=== PATIENT | male | born 1945 | race Caucasian/White ===

== ENCOUNTER 2019-01-21 15:22 | Emergency (ER) | payer OTHER ==
[2019-01-21] MEDS ORDERED: Sodium Chloride 0.9% 10 ML Syringe FLUSH PRN (16:09)
[2019-01-21] MEDS ORDERED: Ondansetron 4 MG/2 ML SDV IVPUSH ONE (16:10)
[2019-01-21] MEDS ORDERED: Sodium Chloride 0.9% 1,000 ML IV SCH (16:15)
--- NOTE | 2019-01-21 16:16 | EDM.PDOC ---
ED HPI GENERAL MEDICAL PROBLEM - General Chief Complaint: Abdominal Pain Stated Complaint: ABDOMINAL PAIN Time Seen by Provider: 01/21/19 15:23 Source of Information: Reports: Patient History Limitations: Reports: No Limitations - History of Present Illness INITIAL COMMENTS - FREE TEXT/NARRATIVE: Yury is a 73 year old male presents to the ED today with c/o 3 month hx of abdominal pain, intermittent in nature, associated nausea, light colored stools that "float". Patient is jaundiced with sclera icterus, he doesn't think this is new. Patient reports yesterday his stool was "normal". Patient does dry heave at times. Patient did drink heavily for "years" has not for many years. I asked patient if he has ever been told he has cirrhosis or liver disease, he "states that may sound familiar". Patient does endorse feeling hot and cold at times. Patient takes up to 800 mg of Ibuprofen for his abdominal pain daily which he states helps. Does not take Tylenol. Stopped his Ranitidine 10 days ago, "it wasn't doing anything". [facility]. Onset: Gradual Duration: Waxing/Waning, Other (3 months) - Related Data Allergies Allergy/AdvReac Type Severity Reaction Status Date / Time Unable to Assess Allergy Unverified 01/21/19 15:48 Home Meds: Home Meds Albuterol [Proventil Neb Soln] 2 puff INH QID PRN 01/21/19 [History] Ibuprofen 800 mg PO DAILY 01/21/19 [History] Past Medical History Respiratory History: Reports: COPD Psychiatric History: Reports: Addiction - Infectious Disease History Infectious Disease History: Reports: Chicken Pox, Measles, Mumps - Past Surgical History Respiratory Surgical History: Reports: None Musculoskeletal Surgical History: Reports: Hip Replacement Social & Family History - Tobacco Use Smoking Status *Q: Former Smoker Years of Tobacco use: 55 Packs/Tins Daily: 3 Used Tobacco, but Quit: Yes Month/Year Tobacco Last Used: 01/2011 Second Hand Smoke Exposure: Yes - Caffeine Use Caffeine Use: Reports: Coffee - Recreational Drug Use Recreational Drug Use: No ED ROS GENERAL - Review of Systems Review Of Systems: ROS reveals no pertinent complaints other than HPI. ED EXAM, GI/ABD - Physical Exam Exam: See Below Exam Limited By: No Limitations General Appearance: Alert, WD/WN, No Apparent Distress Eyes: Bilateral: EOMI Ears: Normal External Exam Nose: Normal Inspection Throat/Mouth: Normal Inspection, Normal Oropharynx Head: Atraumatic, Normocephalic Neck: Supple Respiratory/Chest: No Respiratory Distress, Lungs Clear, Normal Breath Sounds Cardiovascular: Normal Peripheral Pulses, Regular Rate, Rhythm, No Murmur GI/Abdominal Exam: Normal Bowel Sounds, Soft, Non-Tender, Distended, Hepatomegaly Back Exam: Normal Inspection Extremities: Normal Inspection Neurological: Alert, Oriented, CN II-XII Intact Psychiatric: Normal Affect, Normal Mood Skin Exam: Jaundice Lymphatic: No Adenopathy Comments: Bilateral scleral icterus Course - Vital Signs Last Recorded V/S: Last Vital Signs Temp 36.3 C 01/21/19 16:00 Pulse 88 01/21/19 16:37 Resp 18 01/21/19 16:37 BP 129/54 L 01/21/19 16:37 Pulse Ox 97 01/21/19 16:37 Yury is a 73 year old male, presents to the ED today with c/o a 3 month hx of intermittent abdominal pain, bloating and abnormal stools with significantly increased flatulence. Please refer to HPI and focused exam. Patient arrives here hemodynamically stable, afebrile, abdomen is bloated on exam but soft and non tender. Patient is jaundice with scleral icterus. Likely with his ETOH use hx he has cirrhosis but cannot remember if he has ever been diagnosed. Patient denies any diabetic hx, does report COPD, overall poor historian, lives alone. Doctors at the [facility] in [place]. We attempted to get records but they are closed for the day. I am concerned with regard to progressive liver disease/failure. Given duration of symptoms, it is unlikely this is obstructive or infectious in nature. UA obtained as well as blood work, patient started on IV normal saline and given Zofran for nausea. UA returns with large bilirubin and 500 Glucose, no infection. CBC returns with low white count of 2.2, elevated HGB of 15.9, Neutrophils 91%, platelets are normal. PTT low, INR normal at 0.99. Lipase is normal. CMP returns with Gap of 14.6, Lactic Acid of 3.5, Bilirubin of 9.2, AST of 131, ALT of 256, Alk Phos of 397 and CRP of 14.37. Creatinine and GFR WNL. Given elevated lactic acid in light of bilirubin and high neutrophil count I did obtain a set of blood cultures and did start patient on Zosyn for sepsis prophylaxis although I do feel that this lactic acid is the result of his bilirubin. CT of abdomen and pelvis obtained. CT scan concerning for soft tissue mass in common bile duct near duodenum. NO gallbladder wall thickening, stones, CBD wall thickened. Concern for malignancy. I discussed his case with Dr. Bee, hospitalist at [facility] as patient is a [facility] patient, he felt patient required more extensive specialty than what they can provide and recommended . I spoke with Dr. Rankin, ED physician at who has graciously accepted patient for admission. Patient update on plan of care and exam/test findings and is agreeable to transfer however is insistent on driving himself. Given his stable vitals signs and the fact that this is not an acute presentation, I feel this is reasonable. Patient discharged in stable condition. - Orders/Labs/Meds Orders: Active Orders 24 hr Category Date Time Status Peripheral IV Care [RC] . DIRECTED Care 01/21/19 16:09 Active CULTURE BLOOD [BC] Urgent Lab 01/21/19 17:30 Received CULTURE BLOOD [BC] Urgent Lab 01/21/19 17:38 Received Iopamidol [Isovue-300 (61%)] Med 01/21/19 17:30 Active 100 ml IV . DIRECTED Piperacillin/Tazobactam [Zosyn] 3.375 gm Med 01/21/19 17:30 Active Sodium Chloride 0.9% [Normal Saline] 50 ml IV Q6H Sodium Chloride 0.9% [Normal Saline] 1,000 ml Med 01/21/19 16:15 Active IV ASDIRECTED Sodium Chloride 0.9% [Normal Saline] 100 ml Med 01/21/19 17:30 Active IV ASDIRECTED Sodium Chloride 0.9% [Saline Flush] Med 01/21/19 16:09 Active 10 ml FLUSH ASDIRECTED PRN Blood Culture x2 Reflex Set [OM.PC] Urgent Oth 01/21/19 17:25 Ordered Peripheral IV Insertion Adult [OM.PC] Routine Oth 01/21/19 16:09 Ordered Medication Orders Sodium Chloride (Normal Saline) 1,000 mls @ 125 mls/hr IV ASDIRECTED RIGOBERTO Last Admin: 01/21/19 16:27 Dose: 125 mls/hr Sodium Chloride (Normal Saline) 100 mls @ 3 mls/sec IV ASDIRECTED RIGOBERTO Last Admin: 01/21/19 17:45 Dose: 3 mls/sec Piperacillin Sod/Tazobactam (Sod 3.375 gm/ Sodium Chloride) 50 mls @ 100 mls/ hr IV Q6H RIGOBERTO Iopamidol (Isovue-300 (61%)) 100 ml IV . DIRECTED RIGOBERTO Last Admin: 01/21/19 17:45 Dose: 100 ml Sodium Chloride (Saline Flush) 10 ml FLUSH ASDIRECTED PRN PRN Reason: Keep Vein Open Last Admin: 01/21/19 16:34 Dose: 10 ml Labs: Laboratory Tests 01/21/19 01/21/19 01/21/19 Range/Units 15:47 16:30 16:30 WBC 2.2 L (4.5-11.0) K/uL RBC 5.35 (4.30-5.90) M/uL Hgb 15.9 H (12.0-15.0) g/dL Hct 47.4 (40.0-54.0) % MCV 89 (80-98) fL MCH 30 (27-31) pg MCHC 34 (32-36) % Plt Count 197 (150-400) K/uL Neut % (Auto) 91 H (36-66) % Lymph % (Auto) 9 L (24-44) % [place] % (Auto) 1 L (2-6) % Eos % (Auto) 0 L (2-4) % Baso % (Auto) 0 (0-1) % PT (9.5-12.0) sec INR (0.80-1.20) APTT (27.0-36.0) sec Sodium 139 L (140-148) mmol/L Potassium 3.6 (3.6-5.2) mmol/L Chloride 101 (100-108) mmol/L Carbon Dioxide 27 (21-32) mmol/L Anion Gap 14.6 H (5.0-14.0) mmol/L BUN 25 H (7-18) mg/dL Creatinine 1.0 (0.8-1.3) mg/dL Est Cr Clr Drug Dosing 65.55 mL/min Estimated GFR (MDRD) > 60 (>60) Glucose 117 H (74-106) mg/dL Lactic Acid (0.4-2.0) mmol/L Calcium 9.6 (8.5-10.1) mg/dL Total Bilirubin 9.2 H (0.2-1.0) mg/dL AST 131 H (15-37) U/L ALT 256 H (12-78) U/L Alkaline Phosphatase 397 H (46-116) U/L Ammonia (11-32) mmol/L C-Reactive Protein 14.37 H (0.0-0.3) mg/dL Total Protein 8.0 (6.4-8.2) g/dL Albumin 3.4 (3.4-5.0) g/dL Globulin 4.6 H (2.3-3.5) g/dL Albumin/Globulin Ratio 0.7 L (1.2-2.2) Lipase (73-393) U/L Urine Color [place] A (YELLOW) Urine Appearance Slightly cloudy A (CLEAR) Urine pH 5.5 (5.0-8.0) Ur Specific [place] >= 1.030 (1.008-1.030) Urine Protein 30 H (NEGATIVE) mg/dL Urine Glucose (UA) 500 H (NEGATIVE) mg/dL Urine Ketones Negative (NEGATIVE) mg/dL Urine Occult Blood Negative (NEGATIVE) Urine Nitrite Negative (NEGATIVE) Urine Bilirubin Large H (NEGATIVE) Urine Urobilinogen 1.0 (0.2-1.0) EU/dL Ur Leukocyte Esterase Negative (NEGATIVE) Urine RBC Not seen (0-5) Urine WBC Not seen (0-5) Ur Epithelial Cells Not seen Amorphous Sediment Not seen Urine Bacteria Not seen Urine Mucus Moderate 01/21/19 01/21/19 01/21/19 Range/Units 16:30 16:30 16:30 WBC (4.5-11.0) K/uL RBC (4.30-5.90) M/uL Hgb (12.0-15.0) g/dL Hct (40.0-54.0) % MCV (80-98) fL MCH (27-31) pg MCHC (32-36) % Plt Count (150-400) K/uL Neut % (Auto) (36-66) % Lymph % (Auto) (24-44) % [place] % (Auto) (2-6) % Eos % (Auto) (2-4) % Baso % (Auto) (0-1) % PT 10.7 (9.5-12.0) sec INR 0.99 (0.80-1.20) APTT 24.0 L (27.0-36.0) sec Sodium (140-148) mmol/L Potassium (3.6-5.2) mmol/L Chloride (100-108) mmol/L Carbon Dioxide (21-32) mmol/L Anion Gap (5.0-14.0) mmol/L BUN (7-18) mg/dL Creatinine (0.8-1.3) mg/dL Est Cr Clr Drug Dosing mL/min Estimated GFR (MDRD) (>60) Glucose (74-106) mg/dL Lactic Acid (0.4-2.0) mmol/L Calcium (8.5-10.1) mg/dL Total Bilirubin (0.2-1.0) mg/dL AST (15-37) U/L ALT (12-78) U/L Alkaline Phosphatase (46-116) U/L Ammonia < 10 L (11-32) mmol/L C-Reactive Protein (0.0-0.3) mg/dL Total Protein (6.4-8.2) g/dL Albumin (3.4-5.0) g/dL Globulin (2.3-3.5) g/dL Albumin/Globulin Ratio (1.2-2.2) Lipase 122 (73-393) U/L Urine Color (YELLOW) Urine Appearance (CLEAR) Urine pH (5.0-8.0) Ur Specific [place] (1.008-1.030) Urine Protein (NEGATIVE) mg/dL Urine Glucose (UA) (NEGATIVE) mg/dL Urine Ketones (NEGATIVE) mg/dL Urine Occult Blood (NEGATIVE) Urine Nitrite (NEGATIVE) Urine Bilirubin (NEGATIVE) Urine Urobilinogen (0.2-1.0) EU/dL Ur Leukocyte Esterase (NEGATIVE) Urine RBC (0-5) Urine WBC (0-5) Ur Epithelial Cells Amorphous Sediment Urine Bacteria Urine Mucus 01/21/19 Range/Units 16:30 WBC (4.5-11.0) K/uL RBC (4.30-5.90) M/uL Hgb (12.0-15.0) g/dL Hct (40.0-54.0) % MCV (80-98) fL MCH (27-31) pg MCHC (32-36) % Plt Count (150-400) K/uL Neut % (Auto) (36-66) % Lymph % (Auto) (24-44) % [place] % (Auto) (2-6) % Eos % (Auto) (2-4) % Baso % (Auto) (0-1) % PT (9.5-12.0) sec INR (0.80-1.20) APTT (27.0-36.0) sec Sodium (140-148) mmol/L Potassium (3.6-5.2) mmol/L Chloride (100-108) mmol/L Carbon Dioxide (21-32) mmol/L Anion Gap (5.0-14.0) mmol/L BUN (7-18) mg/dL Creatinine (0.8-1.3) mg/dL Est Cr Clr Drug Dosing mL/min Estimated GFR (MDRD) (>60) Glucose (74-106) mg/dL Lactic Acid 3.5 H (0.4-2.0) mmol/L Calcium (8.5-10.1) mg/dL Total Bilirubin (0.2-1.0) mg/dL AST (15-37) U/L ALT (12-78) U/L Alkaline Phosphatase (46-116) U/L Ammonia (11-32) mmol/L C-Reactive Protein (0.0-0.3) mg/dL Total Protein (6.4-8.2) g/dL Albumin (3.4-5.0) g/dL Globulin (2.3-3.5) g/dL Albumin/Globulin Ratio (1.2-2.2) Lipase (73-393) U/L Urine Color (YELLOW) Urine Appearance (CLEAR) Urine pH (5.0-8.0) Ur Specific [place] (1.008-1.030) Urine Protein (NEGATIVE) mg/dL Urine Glucose (UA) (NEGATIVE) mg/dL Urine Ketones (NEGATIVE) mg/dL Urine Occult Blood (NEGATIVE) Urine Nitrite (NEGATIVE) Urine Bilirubin (NEGATIVE) Urine Urobilinogen (0.2-1.0) EU/dL Ur Leukocyte Esterase (NEGATIVE) Urine RBC (0-5) Urine WBC (0-5) Ur Epithelial Cells Amorphous Sediment Urine Bacteria Urine Mucus Meds: Medications Generic Name Dose Route Start Last Admin Trade Name Wes PRN Reason Stop Dose Admin Sodium Chloride 1,000 mls @ 125 mls/hr 01/21/19 16:15 01/21/19 16:27 Normal Saline IV 125 mls/hr ASDIRECTED RIGOBERTO Administration Sodium Chloride 100 mls @ 3 mls/sec 01/21/19 17:30 01/21/19 17:45 Normal Saline IV 3 mls/sec ASDIRECTED RIGOBERTO Administration Piperacillin Sod/Tazobactam 50 mls @ 100 mls/hr 01/21/19 17:30 Sod 3.375 gm/ Sodium Chloride IV Q6H RIGOBERTO Iopamidol 100 ml 01/21/19 17:30 01/21/19 17:45 Isovue-300 (61%) IV 100 ml . DIRECTED RIGOBERTO Administration Sodium Chloride 10 ml 01/21/19 16:09 01/21/19 16:34 Saline Flush FLUSH 10 ml ASDIRECTED PRN Administration Keep Vein Open Discontinued Medications Generic Name Dose Route Start Last Admin Trade Name Wes PRN Reason Stop Dose Admin Ondansetron HCl 4 mg 01/21/19 16:10 01/21/19 16:34 Zofran IVPUSH 01/21/19 16:11 4 mg ONETIME ONE Administration Sodium Chloride 10 ml 01/21/19 17:28 01/21/19 17:45 Saline Flush FLUSH 01/21/19 17:29 10 ml ONETIME ONE Administration Departure - Departure Time of Disposition: 19:30 Disposition: DC/Tfer to Acute Hospital 02 Condition: Fair Clinical Impression: Jaundice, Elevated bilirubin, Common bile duct mass, Elevated LFTs, Elevated lactic acid level, Scleral icterus - Discharge Information Referrals: PCP,None [Primary Care Provider] - Forms: ED Department Discharge - My Orders Last 24 Hours: My Active Orders 01/21/19 16:09 Peripheral IV Care [RC] . DIRECTED Sodium Chloride 0.9% [Saline Flush] 10 ml FLUSH ASDIRECTED PRN Peripheral IV Insertion Adult [OM.PC] Routine 01/21/19 16:15 Sodium Chloride 0.9% [Normal Saline] 1,000 ml IV ASDIRECTED 01/21/19 17:25 Blood Culture x2 Reflex Set [OM.PC] Urgent 01/21/19 17:30 CULTURE BLOOD [BC] Urgent Iopamidol [Isovue-300 (61%)] 100 ml IV . DIRECTED Piperacillin/Tazobactam [Zosyn] 3.375 gm Sodium Chloride 0.9% [Normal Saline] 50 ml IV Q6H Sodium Chloride 0.9% [Normal Saline] 100 ml IV ASDIRECTED 01/21/19 17:38 CULTURE BLOOD [BC] Urgent - Assessment/Plan Last 24 Hours: My Active Orders 01/21/19 16:09 Peripheral IV Care [RC] . DIRECTED Sodium Chloride 0.9% [Saline Flush] 10 ml FLUSH ASDIRECTED PRN Peripheral IV Insertion Adult [OM.PC] Routine 01/21/19 16:15 Sodium Chloride 0.9% [Normal Saline] 1,000 ml IV ASDIRECTED 01/21/19 17:25 Blood Culture x2 Reflex Set [OM.PC] Urgent 01/21/19 17:30 CULTURE BLOOD [BC] Urgent Iopamidol [Isovue-300 (61%)] 100 ml IV . DIRECTED Piperacillin/Tazobactam [Zosyn] 3.375 gm Sodium Chloride 0.9% [Normal Saline] 50 ml IV Q6H Sodium Chloride 0.9% [Normal Saline] 100 ml IV ASDIRECTED 01/21/19 17:38 CULTURE BLOOD [BC] Urgent
[2019-01-21] MEDS ORDERED: Sodium Chloride 0.9% 10 ML Syringe FLUSH ONE (17:28)
[2019-01-21] MEDS ORDERED: Piperacillin/Tazobactam 3.375 GM in Sodium Chloride 0.9% 50 ML IV SCH (17:30)
[2019-01-21] MEDS ORDERED: Iopamidol 612 MG/ML 100 ML Bottle IV SCH (17:30)
[2019-01-21] MEDS ORDERED: Sodium Chloride 0.9% 100 ML IV SCH (17:30)
--- NOTE | 2019-01-21 18:06 | CRLCT ---
Indication: Abdominal distention. Elevated bilirubin and LFTs. Technique: Multiple contiguous axial images were obtained from the lung bases through the symphysis pubis after the intravenous administration 100 cc Isovue-300. Please note that all CT scans at this facility use dose modulation, iterative reconstruction, and/or weight-based dosing when appropriate to reduce radiation dose to as low as reasonably achievable. Comparison: None Findings: The lung bases are clear. The heart is normal in size. Coronary artery calcifications are identified. Intrahepatic biliary ductal dilatation is identified. The common bile duct is dilated, measuring 19 mm in size. A questionable soft tissue mass is identified within the common bile duct, best seen on image number 49, series 2. The gallbladder is distended. Questionable pericholecystic free fluid is identified. The spleen, pancreas, adrenals, and kidneys are normal. An infrarenal abdominal aortic aneurysm is identified. This measures 4.0 x 4.0 cm in size. In the pelvis, streak artifact from the patient`s right hip arthroplasty degrades numerous images. The prostate gland is enlarged. Prostatic calcifications are identified. The small and large bowel are normal in caliber. The appendix is normal in size. No free air or free fluid is identified within the abdomen or pelvis. Degenerative changes of the spine are identified. Impression: Intra and extrahepatic biliary ductal dilatation with a questionable soft tissue mass identified within the common bile duct just prior to its entrance into the duodenum. This is worrisome for malignancy. Infrarenal abdominal aortic aneurysm. Prostatic enlargement These findings were discussed with Dr. Crooks at the time of this dictation. Please note that all CT scans at this facility use dose modulation, iterative reconstruction, and/or weight-based dosing when appropriate to reduce radiation dose to as low as reasonably achievable. Dictated by Cecelia Servin MD @ Jan 21 2019 6:01PM Signed by Dr. Cecelia Servin @ Jan 21 2019 6:06PM
== END 2019-01-21 19:24 ==
LOC: JP.ED 15:22
DX: R17 Unspecified jaundice (principal); K83.9 Disease of biliary tract, unspecified; E87.2 Acidosis; R94.5 Abnormal results of liver function studies; Z87.891 Personal history of nicotine dependence
CPT/HCPCS: 36415; 74177; 80053; 81001; 82140; 83605; 83690; 85025; 85610; 85730; 86140; 87040; 87077; 87186; 96361; 96365; 96375; 99284; 99285; J2405; J2543; J7030; J7050; Q9967

== ENCOUNTER 2019-04-22 12:24 | Emergency (ER) | payer OTHER ==
--- NOTE | 2019-04-22 13:34 | EDM.PDOC ---
<Celeste Munoz - Last Filed: 04/22/19 18:15> ED HPI GENERAL MEDICAL PROBLEM - General Chief Complaint: Neuro Symptoms/Deficits Stated Complaint: POSSIBLE STROKE FOUR DAYS AGO Time Seen by Provider: 04/22/19 13:34 Source of Information: Reports: Patient History Limitations: Reports: No Limitations - History of Present Illness INITIAL COMMENTS - FREE TEXT/NARRATIVE: pt states that he had an episode 3 weeks ago when he was not able to type or use his computer. He states this lasted several hours. $ days ago he had an episode where he got marked weakness in his rt arm and rt leg. He States that has gotten better but he is still having difficulty coordinating his rt ar and rt leg. He has not had facial deviation. Onset: Other ( the rt sided weakness started aabout 4 days ago. ) Duration: Hour(s): Location: Reports: Upper Extremity, Right, Lower Extremity, Right Associated Symptoms: Reports: No Other Symptoms, Weakness - Related Data Allergies Allergy/AdvReac Type Severity Reaction Status Date / Time Unable to Assess Allergy Unverified 01/21/19 15:48 Home Meds: Home Meds Albuterol [Proventil Neb Soln] 2 puff INH QID PRN 01/21/19 [History] Ibuprofen 800 mg PO DAILY 01/21/19 [History] Past Medical History Cardiovascular History: Reports: Hypertension Respiratory History: Reports: COPD Psychiatric History: Reports: Addiction - Infectious Disease History Infectious Disease History: Reports: Chicken Pox, Measles, Mumps - Past Surgical History Respiratory Surgical History: Reports: None GI Surgical History: Reports: Cholecystectomy Musculoskeletal Surgical History: Reports: Hip Replacement Social & Family History - Tobacco Use Smoking Status *Q: Former Smoker Used Tobacco, but Quit: Yes Month/Year Tobacco Last Used: 2008 - Caffeine Use Caffeine Use: Reports: None - Recreational Drug Use Recreational Drug Use: No ED ROS GENERAL - Review of Systems Review Of Systems: See Below Constitutional: Reports: No Symptoms HEENT: Reports: No Symptoms Respiratory: Reports: No Symptoms Cardiovascular: Reports: No Symptoms Endocrine: Reports: No Symptoms GI/Abdominal: Reports: No Symptoms : Reports: No Symptoms Musculoskeletal: Reports: No Symptoms Skin: Reports: No Symptoms ED EXAM, NEURO - Physical Exam Exam: See Below Text/Narrative:: pt arrived after having 2 episodes in the last month regarding weakness in the rt arm and rt leg. He also had difficulty using the computer and forming words 3 weeks ago. Exam Limited By: No Limitations General Appearance: Alert, No Apparent Distress, Anxious, Other (pupils are equal and reactive. ) Ears: Normal TMs Nose: Normal Inspection Throat/Mouth: Normal Inspection Head Exam: Atraumatic Neck: Normal Inspection Respiratory/Chest: No Respiratory Distress Cardiovascular: Regular Rate, Rhythm GI/Abdominal: Soft, Non-Tender (Male) Exam: Deferred Rectal (Males) Exam: Deferred Neurological: Alert, Other (pt is clearly mildly weak in the rt arm and rt leg. He is having difficulty coordinating the arm and leg. ) Back Exam: Normal Inspection Extremities: Normal Inspection, Other ( see the notes above regarding weakness and difficulty coordinating the rt side. ) Psychiatric: Normal Affect Course - Vital Signs Last Recorded V/S: Last Vital Signs Temp 35.0 C L 04/22/19 12:57 Pulse 82 04/22/19 12:57 Resp 16 04/22/19 12:57 BP 140/73 04/22/19 12:57 Pulse Ox 95 04/22/19 12:57 - Orders/Labs/Meds Orders: Active Orders 24 hr Category Date Time Status EKG Documentation Completion [RC] ASDIRECTED Care 04/22/19 13:33 Active EKG 12 Lead [EK] Routine Ther 04/22/19 13:33 Ordered Labs: Laboratory Tests 04/22/19 04/22/19 04/22/19 Range/Units 13:39 13:39 16:56 WBC 8.1 (4.5-11.0) K/uL RBC 6.13 H (4.30-5.90) M/uL Hgb 17.9 H D (12.0-15.0) g/dL Hct 52.4 (40.0-54.0) % MCV 86 (80-98) fL MCH 29 (27-31) pg MCHC 34 (32-36) % Plt Count 225 (150-400) K/uL Neut % (Auto) 67 H (36-66) % Lymph % (Auto) 24 (24-44) % [place] % (Auto) 8 H (2-6) % Eos % (Auto) 1 L (2-4) % Baso % (Auto) 0 (0-1) % Sodium 137 L (140-148) mmol/L Potassium 4.4 (3.6-5.2) mmol/L Chloride 101 (100-108) mmol/L Carbon Dioxide 26 (21-32) mmol/L Anion Gap 14.4 H (5.0-14.0) mmol/L BUN 16 (7-18) mg/dL Creatinine 1.1 (0.8-1.3) mg/dL Est Cr Clr Drug Dosing 59.59 mL/min Estimated GFR (MDRD) > 60 (>60) Glucose 126 H (74-106) mg/dL Calcium 9.3 (8.5-10.1) mg/dL Total Bilirubin 1.4 H D (0.2-1.0) mg/dL AST 32 D (15-37) U/L ALT 62 D (12-78) U/L Alkaline Phosphatase 99 D (46-116) U/L Total Protein 8.0 (6.4-8.2) g/dL Albumin 4.2 (3.4-5.0) g/dL Globulin 3.8 H (2.3-3.5) g/dL Albumin/Globulin Ratio 1.1 L (1.2-2.2) Urine Color Yellow (YELLOW) Urine Appearance Clear (CLEAR) Urine pH 6.0 (5.0-8.0) Ur Specific [place] 1.020 (1.008-1.030) Urine Protein Negative (NEGATIVE) mg/dL Urine Glucose (UA) Negative (NEGATIVE) mg/dL Urine Ketones Negative (NEGATIVE) mg/dL Urine Occult Blood Negative (NEGATIVE) Urine Nitrite Negative (NEGATIVE) Urine Bilirubin Negative (NEGATIVE) Urine Urobilinogen 0.2 (0.2-1.0) EU/dL Ur Leukocyte Esterase Negative (NEGATIVE) Urine RBC Not seen (0-5) Urine WBC 0-5 (0-5) Ur Epithelial Cells Rare Amorphous Sediment Not seen Urine Bacteria Not seen Urine Mucus Not seen - Re-Assessments/Exams Free Text/Narrative Re-Assessment/Exam: 04/22/19 18:22 pt has a high HG and he has a cat scan which did not reveal acute findings. He was offered admission but he would not stay because he had to be home to keep his pipes from freezing. He is willing to return for an MRI tomorrow. Departure - Departure Time of Disposition: 17:27 Disposition: Home, Self-Care 01 Condition: Fair Clinical Impression: TIA (transient ischemic attack) - Discharge Information Instructions: Transient Ischemic Attack, [id number] Referrals: PCP,None [Primary Care Provider] - Forms: ED Department Discharge Care Plan Goals: pt was offered admission and he absolutely could not stay. He needs a Mri and he can rtc tomorrow. schedule mri of the head for am. Pt needs to be reevaluated in the ER tomorrow. Sepsis Event Note - Evaluation Sepsis Screening Result: No Definite Risk - Focused Exam Date Exam was Performed: 04/22/19 Time Exam was Performed: 18:15 <Filemon Starr - Last Filed: 04/23/19 14:12> Course - Re-Assessments/Exams Free Text/Narrative Re-Assessment/Exam: Received notification from radiology this afternoon that this patient's MR had resulted showed multiple foci of left sided stroke. I called the patient to relay these results and recommend he return to the ED for hospitalization. 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 I told him my recommendation is that he re-present to the ED [facility] as he is at risk of recurrent embolism and stroke. He acknowledged this risk and will try and get into the ED tomorrow morning. He agreed to present sooner for any worsening of symptoms or headache. 04/23/19 14:08
--- NOTE | 2019-04-22 14:08 | CT ---
Head wo Cont CLINICAL HISTORY: Right-sided hemiparesis COMPARISON: None TECHNIQUE: Transverse scans were obtained from the base of the skull through the vertex without IV contrast on a multislice, multidetector CT scanner. Auto dosage reduction and iterative reconstruction techniques employed. FINDINGS: No focal abnormal parenchymal density is identified. There is no mass effect, hemorrhage, or extraaxial collection. The basal cisterns and sulci over the convexities are mildly prominent. The ventricles are normal for age. IMPRESSION: Mild age-related atrophy No focal lesion mass effect or hemorrhage
== END 2019-04-22 18:13 | disposition home or self-care (01) ==
LOC: JP.ED 12:24
DX: G45.9 Transient cerebral ischemic attack, unspecified (principal); I10 Essential (primary) hypertension; J44.9 Chronic obstructive pulmonary disease, unspecified; Z87.891 Personal history of nicotine dependence; Z79.899 Other long term (current) drug therapy
CPT/HCPCS: 36415; 70450; 70450-26; 80053; 81001; 85025; 93005; 93010; 99284; 99285-25

== ENCOUNTER 2019-04-23 17:30 | Observation (INO) | payer OTHER ==
[2019-04-23] MEDS ORDERED: Aspirin 81 MG Tab.Chew PO ONE (18:07)
--- NOTE | 2019-04-23 18:16 | EDM.PDOC ---
ED HPI GENERAL MEDICAL PROBLEM - General Chief Complaint: Neuro Symptoms/Deficits Stated Complaint: HEART ISSUES Time Seen by Provider: 04/23/19 18:09 Source of Information: Reports: Patient, Old Records, Provider, RN History Limitations: Reports: No Limitations - History of Present Illness INITIAL COMMENTS - FREE TEXT/NARRATIVE: 73 [facility] was [facility] seen and dx with some acute small embolic cerebral infarcts. He has refused admission earlier due to an issue with his furnace at home. He is now back to be admitted and further worked up for this problem. States that since he first had this stroke he thinks he has improved a little. Still has poor control of the fingers of his R hand and his R leg does not work like it should, but he is able to walk. Denies any new visual disturbances, no difficulty with speech or swallowing. No APPLE. No facial droop. Onset: Sudden Duration: Week(s): (1), Constant, Improving (slightly) Location: Reports: Upper Extremity, Right, Lower Extremity, Right Quality: Reports: Other (no pain) Severity: Moderate Improves with: Reports: Other (slight improvement with time) Worsens with: Reports: Other (none) Context: Reports: Other (see HPI) Associated Symptoms: Reports: No Other Symptoms. 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) (none) - Related Data Allergies Allergy/AdvReac Type Severity Reaction Status Date / Time Penicillins AdvReac Rash Verified 04/23/19 17:54 Home Meds: Home Meds Albuterol [Proventil Neb Soln] 2 puff INH QID PRN 01/21/19 [History] Ibuprofen 800 mg PO DAILY 01/21/19 [History] Past Medical History HEENT History: Reports: Impaired Vision Cardiovascular History: Reports: Hypertension Respiratory History: Reports: COPD Gastrointestinal History: Reports: None, Other (See Below) Musculoskeletal History: Reports: None Psychiatric History: Reports: Addiction - Infectious Disease History Infectious Disease History: Reports: Chicken Pox, Measles, Mumps - Past Surgical History Head Surgeries/Procedures: Reports: None HEENT Surgical History: Reports: None Cardiovascular Surgical History: Reports: None Respiratory Surgical History: Reports: None GI Surgical History: Reports: Cholecystectomy Musculoskeletal Surgical History: Reports: Hip Replacement Dermatological Surgical History: Reports: None Social & Family History - Tobacco Use Smoking Status *Q: Former Smoker Used Tobacco, but Quit: Yes Month/Year Tobacco Last Used: 2008 - Caffeine Use Caffeine Use: Reports: None - Recreational Drug Use Recreational Drug Use: No ED ROS GENERAL - Review of Systems Review Of Systems: See Below Constitutional: Reports: No Symptoms HEENT: Reports: No Symptoms Respiratory: Reports: No Symptoms Cardiovascular: Reports: No Symptoms Endocrine: Reports: No Symptoms GI/Abdominal: Reports: No Symptoms : Reports: No Symptoms Musculoskeletal: Reports: No Symptoms Skin: Reports: No Symptoms Neurological: Reports: Gait Disturbance (R leg weak), Other (R hand with lack of coordination). Denies: Dizziness, Headache, Trouble Speaking Psychiatric: Reports: No Symptoms Hematologic/Lymphatic: Reports: No Symptoms ED EXAM, NEURO - Physical Exam Exam: See Below Exam Limited By: No Limitations General Appearance: Alert, WD/WN, No Apparent Distress Eye Exam: Bilateral Eye: EOMI, Normal Inspection, PERRL Ears: Normal External Exam, Normal Canal, Hearing Grossly Normal, Normal TMs Nose: Normal Inspection, No Blood Throat/Mouth: Normal Inspection, Normal Lips, Normal Oropharynx, Normal Voice, No Airway Compromise Head Exam: Atraumatic, Normocephalic Neck: Normal Inspection Respiratory/Chest: No Respiratory Distress, Lungs Clear, Normal Breath Sounds, No Accessory Muscle Use Cardiovascular: Regular Rate, Rhythm, No Edema GI/Abdominal: Normal Bowel Sounds, Soft, Non-Tender, No Distention Neurological: Alert, Normal Mood/Affect, CN II-XII Intact, Oriented x 3, Other ( R hand with poor control. R leg weak, can lift off bed against gravity to a height of only about 6 inches. ). No: No Motor/Sensory Deficits Back Exam: Normal Inspection Extremities: Normal Inspection, Non-Tender, No Pedal Edema Psychiatric: Normal Affect, Normal Mood Skin Exam: Warm, Dry, Intact, Normal Color, No Rash Course - Vital Signs Last Recorded V/S: Last Vital Signs Temp 36.6 C 04/23/19 22:51 Pulse 82 04/23/19 22:51 Resp 18 04/23/19 22:51 BP 138/76 04/23/19 22:51 Pulse Ox 92 L 04/23/19 22:51 - Orders/Labs/Meds Orders: Active Orders 24 hr Category Date Time Status Cardiac Monitoring [RC] .As Directed Care 04/23/19 18:07 Active Sodium Chloride 0.9% [Saline Flush] Med 04/23/19 18:24 Active 10 ml FLUSH ASDIRECTED PRN Medication Orders Acetaminophen (Tylenol) 650 mg PO Q4H PRN PRN Reason: Pain (Mild 1-3)/fever Albuterol (Proventil Neb Soln) 2.5 mg NEB Q4H PRN PRN Reason: Shortness Of Breath/wheezing Aspirin (Ecotrin) 325 mg PO DAILY [facility] Docusate Sodium (Colace) 100 mg PO BID PRN PRN Reason: Constipation Ibuprofen (Motrin) 800 mg PO DAILY [facility] Lorazepam (Ativan) 1 mg IV Q6H PRN PRN Reason: Nausea/Vomiting Melatonin (Melatonin) 6 mg PO BEDTIME PRN PRN Reason: Insomnia Morphine Sulfate (Morphine) 2 mg IVPUSH Q2H PRN PRN Reason: Pain (severe 7-10) Ondansetron HCl (Zofran Odt) 4 mg PO Q6H PRN PRN Reason: Nausea able to take PO Oxycodone HCl (Oxycodone) 5 mg PO Q4H PRN PRN Reason: Pain (moderate 4-6) Pantoprazole Sodium (Protonix Iv) 40 mg IV DAILY RIGOB[facility]O Sodium Chloride (Saline Flush) 10 ml FLUSH ASDIRECTED PRN PRN Reason: Keep Vein Open Last Admin: 04/23/19 18:41 Dose: 10 ml Temazepam (Restoril) 15 mg PO BEDTIME PRN PRN Reason: Sleep Meds: Medications Generic Name Dose Route Start Last Admin Trade Name Freq PRN Reason Stop Dose Admin Acetaminophen 650 mg 04/23/19 21:22 Tylenol PO Q4H PRN Pain (Mild 1-3)/fever Albuterol 2.5 mg 04/23/19 21:22 Proventil Neb Soln NEB Q4H PRN Shortness Of Breath/wheezing Aspirin 325 mg 04/24/19 09:00 Ecotrin PO DAILY RIGOBERTO Docusate Sodium 100 mg 04/23/19 21:22 Colace PO BID PRN Constipation Ibuprofen 800 mg 04/24/19 09:00 Motrin PO DAILY RIG[facility]O Lorazepam 1 mg 04/23/19 21:22 Ativan IV Q6H PRN Nausea/Vomiting Melatonin 6 mg 04/23/19 21:22 Melatonin PO BEDTIME PRN Insomnia Morphine Sulfate 2 mg 04/23/19 21:22 Morphine IVPUSH Q2H PRN Pain (severe 7-10) Ondansetron HCl 4 mg 04/23/19 21:22 Zofran Odt PO Q6H PRN Nausea able to take PO Oxycodone HCl 5 mg 04/23/19 21:22 Oxycodone PO Q4H PRN Pain (moderate 4-6) Pantoprazole Sodium 40 mg 04/24/19 09:00 Protonix Iv IV DAILY RIGOBERTO Sodium Chloride 10 ml 04/23/19 18:24 04/23/19 18:41 Saline Flush FLUSH 10 ml ASDIRECTED PRN Administration Keep Vein Open Temazepam 15 mg 04/23/19 21:22 Restoril PO BEDTIME PRN Sleep Discontinued Medications Generic Name Dose Route Start Last Admin Trade Name Freq PRN Reason Stop Dose Admin Albuterol mg 04/23/19 21:22 Proventil Neb Soln INH QID PRN Shortness of Breath Aspirin 324 mg 04/23/19 18:07 04/23/19 18:16 Aspirin PO 04/23/19 18:08 324 mg ONETIME ONE Administration Departure - Departure Time of Disposition: 19:00 Disposition: Admitted As Inpatient 68 Condition: Fair Clinical Impression: Cerebrovascular accident (CVA) Qualifiers: CVA mechanism: embolism Precerebral and cerebral artery: unspecified cerebral artery Qualified Code(s): I63.40 - Cerebral infarction due to embolism of unspecified cerebral artery - Discharge Information *PRESCRIPTION DRUG MONITORING PROGRAM REVIEWED*: No *COPY OF PRESCRIPTION DRUG MONITORING REPORT IN PATIENT JUAN: No Sepsis Event Note - Evaluation Sepsis Screening Result: No Definite Risk - Focused Exam Vital Signs: Vital Signs Temp Pulse Resp BP Pulse Ox 04/23/19 19:18 85 138/74 04/23/19 18:22 87 17 130/79 04/23/19 17:55 36.4 C 91 12 161/80 H 94 L 04/23/19 17:47 36.4 C 91 12 161/80 H 94 L Date Exam was Performed: 04/23/19 Time Exam was Performed: 23:51 - My Orders Last 24 Hours: My Active Orders 04/23/19 18:07 Cardiac Monitoring [RC] .As Directed 04/23/19 18:24 Sodium Chloride 0.9% [Saline Flush] 10 ml FLUSH ASDIRECTED PRN - Assessment/Plan Last 24 Hours: My Active Orders 04/23/19 18:07 Cardiac Monitoring [RC] .As Directed 04/23/19 18:24 Sodium Chloride 0.9% [Saline Flush] 10 ml FLUSH ASDIRECTED PRN
[2019-04-23] MEDS ORDERED: Sodium Chloride 0.9% 10 ML Syringe FLUSH PRN (18:24)
--- NOTE | 2019-04-23 21:05 | PCM.HP.2 ---
H&P History of Present Illness - General Date of Service: 04/23/19 Admit Problem/Dx: Admission Diagnosis/Problem Admission Diagnosis/Problem CVA, Cerebrovascular accident Source of Information: Patient, Provider History Limitations: Reports: No Limitations - History of Present Illness Initial Comments - Free Text/Narative: 73 [facility] patient was recently seen and dx with some acute small embolic cerebral infarcts. He has refused admission earlier due to an issue with his furnace at home. He is now back to be admitted and further worked up for this problem. States that since he first had this stroke he thinks he has improved a little. Still has poor control of the fingers of his R hand and his R leg does not work like it should, but he is able to walk. Denies any new visual disturbances, no difficulty with speech or swallowing. No APPLE. No facial droop. Onset of Symptoms: Reports: Gradual (reports symptoms started one month ago) Duration of Symptoms: Reports: Week(s):, Waxing/Waning Location: Reports: Upper Extremity, Right, Lower Extremity, Right Severity: Mild Improves with: Reports: None Worsens with: Reports: None Associated Symptoms: Reports: No Other Symptoms - Related Data Allergies/Adverse Reactions: Allergies Allergy/AdvReac Type Severity Reaction Status Date / Time Penicillins AdvReac Rash Verified 04/23/19 17:54 Home Medications: Home Meds Albuterol [Proventil Neb Soln] 2 puff INH QID PRN 01/21/19 [History] Ibuprofen 800 mg PO DAILY 01/21/19 [History] Past Medical History HEENT History: Reports: Impaired Vision Cardiovascular History: Reports: Hypertension Respiratory History: Reports: COPD Gastrointestinal History: Reports: None, Other (See Below) Musculoskeletal History: Reports: None Psychiatric History: Reports: Addiction - Infectious Disease History Infectious Disease History: Reports: Chicken Pox, Measles, Mumps - Past Surgical History Head Surgeries/Procedures: Reports: None HEENT Surgical History: Reports: None Cardiovascular Surgical History: Reports: None Respiratory Surgical History: Reports: None GI Surgical History: Reports: Cholecystectomy Musculoskeletal Surgical History: Reports: Hip Replacement Dermatological Surgical History: Reports: None Social & Family History - Tobacco Use Smoking Status *Q: Former Smoker Used Tobacco, but Quit: Yes Month/Year Tobacco Last Used: 2008 - Caffeine Use Caffeine Use: Reports: None - Recreational Drug Use Recreational Drug Use: No - Living Situation & Occupation Living situation: Reports: Single, Alone Occupation: Employed (lives alone in [place], [place]. 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.) H&P Review of Systems - Review of Systems: Review Of Systems: See Below General: Reports: Other (right sided weakness arm and leg) HEENT: Reports: No Symptoms Pulmonary: Reports: No Symptoms Cardiovascular: Reports: No Symptoms Gastrointestinal: Reports: No Symptoms Genitourinary: Reports: No Symptoms Musculoskeletal: Reports: No Symptoms Skin: Reports: No Symptoms Psychiatric: Reports: No Symptoms Neurological: Reports: Tingling (right hand), Difficulty Walking (right leg), Weakness (right hand, right arm and right leg), Gait Disturbance (right sided body weakness.) Hematologic/Lymphatic: Reports: No Symptoms Immunologic: Reports: No Symptoms Exam - Exam Exam: See Below - Vital Signs Vital Signs: Last Vital Signs Temp 36.4 C 04/23/19 17:55 Pulse 85 04/23/19 19:18 Resp 17 04/23/19 18:22 BP 138/74 04/23/19 19:18 Pulse Ox 94 L 04/23/19 17:55 Weight: 72.6 kg - Exam General: Alert, Oriented, 4 HEENT: PERRLA, Hearing Intact, Mucosa Moist & Highfill, Nares Patent, Normal Nasal Septum, Posterior Pharynx Clear, Conjunctiva Clear, EOMI, EACs Clear, TMs Clear Neck: Supple, Trachea Midline, 2 Lungs: Clear to Auscultation, Normal Respiratory Effort Cardiovascular: Regular Rate, Regular Rhythm GI/Abdominal Exam: Normal Bowel Sounds, Soft, Non-Tender, No Organomegaly, No Abnormal Bruit, No Mass, Pelvis Stable, Other (large abdomen - soft, non-tender) (Male) Exam: Deferred Rectal (Males) Exam: Deferred Back Exam: Normal Inspection Extremities: Other (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 and grasp of hands and feet of right side.) Peripheral Pulses: 2+: Radial (L), Radial (R) Skin: Warm, Dry, Intact Neurological: Other (weakness noted to right sided of body) Neuro Extensive - Mental Status: Alert, Oriented x3, Normal Mood/Affect, Normal Cognition, Memory Intact Neuro Extensive - Motor, Sensory, Reflexes: Motor/Sensory Deficits Psychiatric: Alert, Normal Affect, Normal Mood Sepsis Event Note - Evaluation Sepsis Screening Result: No Definite Risk - Focused Exam Vital Signs: Vital Signs Temp Pulse Resp BP Pulse Ox 04/23/19 19:18 85 138/74 04/23/19 18:22 87 17 130/79 04/23/19 17:55 36.4 C 91 12 161/80 H 94 L 04/23/19 17:47 36.4 C 91 12 161/80 H 94 L Date Exam was Performed: 04/23/19 Time Exam was Performed: 22:04 - Problem List (1) Cerebrovascular accident (CVA) SNOMED Code(s): 831490163 ICD Code: I63.9 - CEREBRAL INFARCTION, UNSPECIFIED Status: Acute Priority : High Current Visit: Yes Qualifiers: CVA mechanism: embolism Precerebral and cerebral artery: unspecified cerebral artery Qualified Code(s): I63.40 - Cerebral infarction due to embolism of unspecified cerebral artery Problem List Initiated/Reviewed/Updated: Yes Orders Last 24hrs: Active Orders 24 hr Category Date Time Status Patient Status Manage Transfer [TRANSFER] Routine ADT 04/23/19 20:45 Active Cardiac Monitoring [RC] .As Directed Care 04/23/19 18:07 Active Sodium Chloride 0.9% [Saline Flush] Med 04/23/19 18:24 Active 10 ml FLUSH ASDIRECTED PRN Saline Lock Insert [OM.PC] Routine Oth 04/23/19 18:24 Ordered Resuscitation Status Routine Resus Stat 04/23/19 20:48 Ordered Medication Orders Sodium Chloride (Saline Flush) 10 ml FLUSH ASDIRECTED PRN PRN Reason: Keep Vein Open Last Admin: 04/23/19 18:41 Dose: 10 ml Assessment/Plan Comment:: Assessment/Plan Comment:: ASSESSMENT AND PLAN 73 yo male [facility] patient was recently seen and dx with some acute small embolic cerebral infarcts. He has refused admission earlier due to an issue with his furnace at home. He is now back to be admitted and further worked up for this problem. States that since he first had this stroke he thinks he has improved a little. Still has poor control of the fingers of his R hand and his R leg does not work like it should, but he is able to walk. Denies any new visual disturbances, no difficulty with speech or swallowing. No APPLE. No facial droop. CVA with right sided weakness -neuro check every 4 hours while awake -MRA of head and neck -scheduled for -Echo of heart -scheduled for -aspirin 325mg po daily MAINTENANCE ISSUES -DVT prophylaxis; scd -GI prophylaxis; continue outpatient PPI therapy -Justin catheter; not indicated -Nutrition; regular diet -Nicotine dependence; not required - quit 15 years ago CODE STATUS-FULL ADMISSION STATUS-this patient will be admitted to observation status, expect no more than a one night hospital stay for evaluation and management of problems as outlined above. DISPOSITION-anticipate discharge to home after the hospital stay. PRIMARY CARE PROVIDER- [facility] HOSPITALIST - Dr. Silverman - Mortality Measure Prognosis:: Good
[2019-04-23] MEDS ORDERED: Docusate Sodium 100 MG Cap PO PRN (21:22)
[2019-04-23] MEDS ORDERED: Morphine 2 MG/ML SYRINGE IVPUSH PRN (21:22)
[2019-04-23] MEDS ORDERED: Melatonin 3 MG Tab PO PRN (21:22)
[2019-04-23] MEDS ORDERED: Temazepam 15 MG Cap PO PRN (21:22)
[2019-04-23] MEDS ORDERED: LORazepam 2 MG/ML SDV IV PRN (21:22)
[2019-04-23] MEDS ORDERED: Acetaminophen 325 MG Tab PO PRN (21:22)
[2019-04-23] MEDS ORDERED: Albuterol 0.083% 2.5 MG/3 ML Neb Soln INH PRN (21:22)
[2019-04-23] MEDS ORDERED: Albuterol 0.083% 2.5 MG/3 ML Neb Soln NEB PRN (21:22)
[2019-04-23] MEDS ORDERED: oxyCODONE 5 MG Tab PO PRN (21:22)
[2019-04-23] MEDS ORDERED: Ondansetron 4 MG Tab.DIS PO PRN (21:22)
[2019-04-24] MEDS ORDERED: Aspirin 325 MG Tab.EC PO SCH (09:00)
[2019-04-24] MEDS ORDERED: Ibuprofen 200 MG Tab PO SCH (09:00)
[2019-04-24] MEDS ORDERED: Pantoprazole 40 MG Vial IV SCH (09:00)
[2019-04-24] MEDS: Ibuprofen 800 MG Tab PO SCH (09:12)
--- NOTE | 2019-04-24 12:04 | PCM.PN ---
- General Info Date of Service: 04/24/19 Subjective Update: No acute events since admission. Still has some difficulty with coordination of the right hand and right leg but in general they are moving better than yesterday. No complaints of headache or blurry vision. In general he feels well. I did discuss the MRI results with the on-call neurologist at [facility]. They recommended planned work-up and initiating anticoagulation with a high likelihood that this is an embolic source such as from atrial fibrillation. Functional Status: Reports: Pain Controlled, Tolerating Diet - Patient Data Vitals - Most Recent: Last Vital Signs Temp 36.6 C 04/24/19 11:00 Pulse 70 04/24/19 11:00 Resp 16 04/24/19 11:00 BP 167/91 H 04/24/19 11:00 Pulse Ox 97 04/24/19 11:00 Weight - Most Recent: 72.6 kg I&O - Last 24 Hours: Intake & Output 04/23/19 04/24/19 04/24/19 22:59 06:59 14:59 Intake Total 400 Balance 400 Lab Results Last 24 Hours: Laboratory Results - last 24 hr 04/24/19 04/24/19 Range/Units 05:28 05:28 WBC 7.0 (4.5-11.0) K/uL RBC 5.68 (4.30-5.90) M/uL Hgb 16.5 H (12.0-15.0) g/dL Hct 49.6 (40.0-54.0) % MCV 87 (80-98) fL MCH 29 (27-31) pg MCHC 33 (32-36) % Plt Count 204 (150-400) K/uL Neut % (Auto) 63 (36-66) % Lymph % (Auto) 27 (24-44) % Lea % (Auto) 9 H (2-6) % Eos % (Auto) 1 L (2-4) % Baso % (Auto) 0 (0-1) % Sodium 140 (140-148) mmol/L Potassium 3.7 (3.6-5.2) mmol/L Chloride 107 (100-108) mmol/L Carbon Dioxide 27 (21-32) mmol/L Anion Gap 6.2 (5.0-14.0) mmol/L BUN 24 H (7-18) mg/dL Creatinine 0.9 (0.8-1.3) mg/dL Est Cr Clr Drug Dosing 72.83 mL/min Estimated GFR (MDRD) > 60 (>60) Glucose 135 H (74-106) mg/dL Calcium 8.9 (8.5-10.1) mg/dL Med Orders - Current: Current Medications Acetaminophen (Tylenol) 650 mg PO Q4H PRN PRN Reason: Pain (Mild 1-3)/fever Albuterol (Proventil Neb Soln) 2.5 mg NEB Q4H PRN PRN Reason: Shortness Of Breath/wheezing Docusate Sodium (Colace) 100 mg PO BID PRN PRN Reason: Constipation Ibuprofen (Motrin) 800 mg PO DAILY [facility] Last Admin: 04/24/19 09:12 Dose: Not Given Lorazepam (Ativan) 1 mg IV Q6H PRN PRN Reason: Nausea/Vomiting Melatonin (Melatonin) 6 mg PO BEDTIME PRN PRN Reason: Insomnia Morphine Sulfate (Morphine) 2 mg IVPUSH Q2H PRN PRN Reason: Pain (severe 7-10) Ondansetron HCl (Zofran Odt) 4 mg PO Q6H PRN PRN Reason: Nausea able to take PO Oxycodone HCl (Oxycodone) 5 mg PO Q4H PRN PRN Reason: Pain (moderate 4-6) Pantoprazole Sodium (Protonix) 40 mg PO ACBREAKFAST [facility] Sodium Chloride (Saline Flush) 10 ml FLUSH ASDIRECTED PRN PRN Reason: Keep Vein Open Last Admin: 04/23/19 18:41 Dose: 10 ml Temazepam (Restoril) 15 mg PO BEDTIME PRN PRN Reason: Sleep Discontinued Medications Albuterol (Proventil Neb Soln) mg INH QID PRN PRN Reason: Shortness of Breath Aspirin (Aspirin) 324 mg PO ONETIME ONE Stop: 04/23/19 18:08 Last Admin: 04/23/19 18:16 Dose: 324 mg Aspirin (Ecotrin) 325 mg PO DAILY [facility] Last Admin: 04/24/19 09:15 Dose: 325 mg Ibuprofen (Motrin) 800 mg PO DAILY [facility] Pantoprazole Sodium (Protonix Iv) 40 mg IV DAILY [facility] Last Admin: 04/24/19 11:08 Dose: Not Given - Exam Quality Assessment: No: Supplemental Oxygen General: Alert, Oriented, Cooperative, No Acute Distress Lungs: Normal Respiratory Effort Cardiovascular: Regular Rate, Regular Rhythm, No Murmurs GI/Abdominal Exam: Soft, No Distention Extremities: No Pedal Edema Neurological: No New Focal Deficit, Other (mild discoordination with right hand vs left ). 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) Psy/Mental Status: Alert, Normal Affect Sepsis Event Note - Evaluation Sepsis Screening Result: No Definite Risk - Focused Exam Vital Signs: Vital Signs Temp Pulse Resp BP Pulse Ox 04/24/19 11:00 36.6 C 70 16 167/91 H 97 04/24/19 07:13 35.9 C 72 18 164/80 H 95 04/24/19 04:00 36.3 C 68 18 120/58 L 94 L Date Exam was Performed: 04/24/19 Time Exam was Performed: 15:08 - Problem List Review Problem List Initiated/Reviewed/Updated: Yes - My Orders Last 24 Hours: My Active Orders 04/24/19 11:59 Rivaroxaban [Xarelto] 20 mg PO ONETIME ONE 04/24/19 12:01 atorvaSTATin [Lipitor] 40 mg PO ONETIME ONE 04/24/19 12:02 GLYCOSYLATED HEMOGLOBIN,HGBA1C [CHEM] Routine 04/25/19 05:00 BASIC METABOLIC PANEL,BMP [CHEM] Timed LIPID PANEL [CHEM] Timed 04/25/19 07:00 Ang Head w Cont [MR] Stat Ang Neck w wo Cont [MR] Stat Echo Comp wo Cont [US] Urgent 04/25/19 09:00 Aspirin [Halfprin] 81 mg PO DAILY 04/25/19 17:00 Rivaroxaban [Xarelto] 20 mg PO WITHDINNER 04/25/19 21:00 atorvaSTATin [Lipitor] 40 mg PO BEDTIME - Plan Plan:: ASSESSMENT AND PLAN- CVA with right sided weakness-embolic source is suspected. MRA of the head and neck is pending as is an echocardiogram. With a high likelihood that this is an embolic source neurology did recommend initiating systemic anticoagulation and the patient was agreeable. I see no obvious contraindications to this. Atheroembolic event is still possible with vascular studies pending. -neuro check every 4 hours while awake -MRA of head and neck -scheduled for Thursday -Echocardiogram scheduled for -Aspirin 81 mg daily -Rivaroxaban 20 mg daily -Atorvastatin 40 mg daily -30-day event monitor to look for atrial fibrillation MAINTENANCE ISSUES -DVT prophylaxis; rivaroxaban -GI prophylaxis; continue outpatient PPI therapy -Nutrition; regular diet ADMISSION STATUS-this patient will be admitted to observation status, expect no more than a one night hospital stay for evaluation and management of problems as outlined above. DISPOSITION-anticipate discharge to home after the hospital stay. PRIMARY CARE PROVIDER- [facility] Niall Johnson MD
[2019-04-24] MEDS: Pantoprazole 40 MG Tab.CR PO SCH (12:26)
[2019-04-24] MEDS ORDERED: atorvaSTATin 20 MG Tab PO ONE (13:00)
[2019-04-24] MEDS ORDERED: Rivaroxaban 10 MG Tab PO ONE (13:00)
[2019-04-25] MEDS: Pantoprazole 40 MG Tab.CR PO SCH (07:46)
[2019-04-25] MEDS ORDERED: Aspirin 81 MG Tab.EC PO SCH (09:00)
[2019-04-25] MEDS: Ibuprofen 800 MG Tab PO SCH (09:11)
[2019-04-25] MEDS ORDERED: Gadoteridol 279.3 MG/ML 20 ML SDV IV SCH (13:15)
--- NOTE | 2019-04-25 14:57 | CRLMR ---
Indication: Right-sided weakness. Technique: 3D [id number] MR angiogram of the [id number] with 3-dimensional MIP projections were submitted. Comparison: No prior studies available for comparison at this institution. Findings: Internal carotid arteries, middle cerebral arteries and anterior cerebral arteries are normal. MCA bifurcations and anterior communicating artery region are normal. Distal vertebral arteries, basilar artery, and posterior cerebral arteries are normal. Basilar tip is normal. No aneurysms, stenoses, or occlusions, throughout. Impression: No evidence of proximal arterial occlusion, aneurysm, dissection, or vascular malformation. Dictated by Jean Marie Caballero MD @ Apr 25 2019 2:51PM Signed by Dr. Jean Marie Caballero @ Apr 25 2019 2:55PM
--- NOTE | 2019-04-25 15:06 | CRLMR ---
Indication: Right-sided weakness. Left cerebral infarcts. Technique: [id number] and Gadolinium bolus MR angiogram of the neck with 3D MIP reconstructions provided. All measurements are based on NASCET criteria. Postcontrast images obtained after administration of 20 cc ProHance Gadolinium-based IV contrast. Comparison: No prior studies available for comparison at this institution. Findings: Severe near-occlusive stenosis of the left proximal internal carotid artery due to atherosclerosis. Severe stenosis of the proximal left ECA. Mild atherosclerotic plaque at the right ICA without significant narrowing. Normal vertebral arteries. No aneurysm, dissection, or vascular malformation. Impression: 1. Severe near-occlusive stenosis of the left proximal internal carotid artery due to atherosclerosis. 2. Severe stenosis of the proximal left ECA. 3. Mild atherosclerotic plaque at the right ICA without significant narrowing. 4. Normal vertebral arteries. Dictated by Jean Marie Caballero MD @ Apr 25 2019 2:55PM Signed by Dr. Jean Marie Caballero @ Apr 25 2019 3:04PM
--- NOTE | 2019-04-25 16:16 | PCM.DCSUM1 ---
Discharge Summary - Hospital Course Brief History: 73-year-old male with history of very mild COPD who presented with weakness of the right hand and right leg. He was admitted for expedited work-up after an MRI revealed multiple areas on the left side of his brain with areas of restricted diffusion concerning for embolic stroke. Diagnosis: Stroke: Yes Modified Grainger Scale: No Signif.Disability Despite Sympt.Able to Carry Out Usual Act./Duties Modified Grainger Scale Score: 1 - Discharge Data Discharge Date: 04/25/19 Discharge Disposition: Home, Self-Care 01 Condition: Good - Referral to Home Health Primary Care Physician: PCP None - Discharge Diagnosis/Problem(s) (1) Cerebrovascular accident (CVA) SNOMED Code(s): 273847873 ICD Code: I63.9 - CEREBRAL INFARCTION, UNSPECIFIED Status: Acute Priority : High Qualifiers: CVA mechanism: embolism Precerebral and cerebral artery: carotid artery Laterality of affected vessel: left Qualified Code(s): I63.132 - Cerebral infarction due to embolism of left carotid artery (2) Carotid artery stenosis with cerebral infarction SNOMED Code(s): 13879669, 469233921 ICD Code: I63.239 - CEREB INFRC DUE TO UNSP OCCLS OR STENOS OF UNSP CRTD ARTERY Status: Acute - Patient Summary/Data Consults: Consultations 04/23/19 21:22 OT Evaluation and Treatment [CONS] Routine Please Evaluate and Treat. OT Reason for Consult: Discharge Planning This query below is only for informational purposes and is not editable. PT Evaluation and Treatment [CONS] Routine Please Evaluate and Treat. PT Reason for Consult: Strengthening This query below is only for informational purposes and is not editable. Hospital Course: Franco presented initially on April 22 with weakness involving the right arm and right leg most notably the right hand. Work-up was reassuring with a normal head CT but there was concern for a cerebrovascular accident and admission to the hospital for expedited work-up was recommended. The patient had concerns about his home and reported that the furnace was out and he needed to be there to tent his home so he declined admission. He did come back the next morning, April 23 for an MRI of the brain. This showed multiple areas of restricted diffusion involving the left side of his brain. Patient was contacted with these results and it was recommended that he return for admission and additional work-up. Patient did come back and to the hospital that evening for admission. His weakness had improved some since onset the day before. Overnight there were no acute issues or abnormalities noted on telemetry. We did get a hemoglobin A1c which was normal. He had no acute issues during the day following admission. I did talk to the neurologist who recommended initiating systemic anticoagulation with the concern that this may be an embolic stroke with showering throughout the left side of his brain. Unfortunately MRI and echocardiogram were not available on April 24 because it was a holiday. On April 25 we were able to complete an echocardiogram which showed a mild reduction in the left ventricular function at 40 to 45% as well as some possible inferior and inferolateral wall motion abnormalities. No significant valve issues were noted. No obvious PFO or blood clots were noted. We also and an MRA of the head, neck and brain. No significant abnormalities were noted within the brain but on the left side his external and internal carotid were both severely stenotic with very minimal flow. I suspect that the stroke on the left side was a shower of cholesterol emboli probably from the stenotic left carotid artery. Patient has been managed with aspirin and atorvastatin as well as the rivaroxaban. With the severe stenosis noted I have transitioned him to aspirin and clopidogrel as well as atorvastatin. He will be following up with his primary care at the [facility] to discuss referral to vascular surgery to consider intervention with his severe stenosis. He does not have significant disabilities because of his cerebrovascular accident at this time. He is stable and safe for discharge home. Discharge information and orders have been faxed to the [facility]. - Patient Instructions Diet: Regular Diet as Tolerated Activity: As Tolerated Showering/Bathing: May Shower Other/Special Instructions: 1. You were in the hospital for management of left sided cerebrovascular accident leading to difficulties with your right arm and right leg. I suspect the stroke was the result of a cholesterol plaque with rupture from the severe carotid artery stenosis. I recommend medication therapy with aspirin 81 mg daily, clopidogrel 75 mg daily and atorvastatin 40 mg daily. You should follow-up with your primary care physician and discuss a referral to see a vascular surgeon for a carotid endarterectomy versus other intervention to relieve the severe stenosis. 2. Follow up with Dr Molina as soon as possible to discuss referral to a vascular surgeon. 3. Seek medical attention if you have acute onset of weakness on the right side of your body or difficulty with speech or concentration. - Discharge Plan *PRESCRIPTION DRUG MONITORING PROGRAM REVIEWED*: No *COPY OF PRESCRIPTION DRUG MONITORING REPORT IN PATIENT JUAN: No Prescriptions/Med Rec: Aspirin [Halfprin] 81 mg PO DAILY #30 tab.ec atorvaSTATin Calcium [Atorvastatin Calcium] 40 mg PO DAILY #30 tablet Clopidogrel [Plavix] 75 mg PO DAILY #30 tablet Home Medications: Home Meds Albuterol [Proventil Neb Soln] 2 puff INH QID PRN 01/21/19 [History] Ibuprofen 800 mg PO DAILY 01/21/19 [History] Aspirin [Halfprin] 81 mg PO DAILY #30 tab.ec 04/25/19 [Rx] Clopidogrel [Plavix] 75 mg PO DAILY #30 tablet 04/25/19 [Rx] atorvaSTATin Calcium [Atorvastatin Calcium] 40 mg PO DAILY #30 tablet 04/25/19 [ Rx] Oxygen Therapy Mode: Room Air Patient Handouts: Carotid Endarterectomy, Carotid Artery Disease Referrals: John Paul Molina MD [Ordering Only Provider] - (1 week - f/u hospital stay for CVA and severe left carotid stenosis ) - Discharge Summary/Plan Comment DC Time >30 min.: No - Patient Data Vitals - Most Recent: Last Vital Signs Temp 36.6 C 04/25/19 10:43 Pulse 73 04/25/19 10:43 Resp 16 04/25/19 10:43 BP 138/77 04/25/19 10:43 Pulse Ox 93 L 04/25/19 10:43 Weight - Most Recent: 72.6 kg I&O - Last 24 hours: Intake & Output 04/25/19 04/25/19 04/25/19 06:59 14:59 22:59 Intake Total 1180 Balance 1180 Lab Results - Last 24 hrs: Laboratory Results - last 24 hr 04/25/19 Range/Units 04:45 Sodium 140 (140-148) mmol/L Potassium 4.0 (3.6-5.2) mmol/L Chloride 107 (100-108) mmol/L Carbon Dioxide 26 (21-32) mmol/L Anion Gap 6.7 (5.0-14.0) mmol/L BUN 27 H (7-18) mg/dL Creatinine 1.0 (0.8-1.3) mg/dL Est Cr Clr Drug Dosing 65.55 mL/min Estimated GFR (MDRD) > 60 (>60) Glucose 126 H (74-106) mg/dL Calcium 8.9 (8.5-10.1) mg/dL Triglycerides 184 H (15-150) mg/dL Cholesterol 161 (0-200) mg/dL LDL Cholesterol Direct 105 H (0-100) mg/dL HDL Cholesterol 30 L (40-60) mg/dL Med Orders - Current: Current Medications Acetaminophen (Tylenol) 650 mg PO Q4H PRN PRN Reason: Pain (Mild 1-3)/fever Albuterol (Proventil Neb Soln) 2.5 mg NEB Q4H PRN PRN Reason: Shortness Of Breath/wheezing Aspirin (Halfprin) 81 mg PO DAILY [facility] Last Admin: 04/25/19 09:10 Dose: 81 mg Atorvastatin Calcium (Lipitor) 40 mg PO BEDTIME [facility] Docusate Sodium (Colace) 100 mg PO BID PRN PRN Reason: Constipation Gadoteridol (Prohance) 20 ml IV . DIRECTED [facility] Stop: 04/25/19 18:00 Last Admin: 04/25/19 13:28 Dose: 20 ml Ibuprofen (Motrin) 800 mg PO DAILY [facility] Last Admin: 04/25/19 09:11 Dose: 800 mg Lorazepam (Ativan) 1 mg IV Q6H PRN PRN Reason: Nausea/Vomiting Melatonin (Melatonin) 6 mg PO BEDTIME PRN PRN Reason: Insomnia Morphine Sulfate (Morphine) 2 mg IVPUSH Q2H PRN PRN Reason: Pain (severe 7-10) Ondansetron HCl (Zofran Odt) 4 mg PO Q6H PRN PRN Reason: Nausea able to take PO Oxycodone HCl (Oxycodone) 5 mg PO Q4H PRN PRN Reason: Pain (moderate 4-6) Pantoprazole Sodium (Protonix) 40 mg PO ACBREAKFAST [facility] Last Admin: 04/25/19 07:46 Dose: 40 mg Rivaroxaban (Xarelto) 20 mg PO WITHLALIT [facility] Sodium Chloride (Saline Flush) 10 ml FLUSH ASDIRECTED PRN PRN Reason: Keep Vein Open Last Admin: 04/23/19 18:41 Dose: 10 ml Temazepam (Restoril) 15 mg PO BEDTIME PRN PRN Reason: Sleep Discontinued Medications Albuterol (Proventil Neb Soln) mg INH QID PRN PRN Reason: Shortness of Breath Aspirin (Aspirin) 324 mg PO ONETIME ONE Stop: 04/23/19 18:08 Last Admin: 04/23/19 18:16 Dose: 324 mg Aspirin (Ecotrin) 325 mg PO DAILY [facility] Last Admin: 04/24/19 09:15 Dose: 325 mg Atorvastatin Calcium (Lipitor) 40 mg PO ONETIME ONE Stop: 04/24/19 13:01 Last Admin: 04/24/19 14:37 Dose: 40 mg Ibuprofen (Motrin) 800 mg PO DAILY [facility] Pantoprazole Sodium (Protonix Iv) 40 mg IV DAILY [facility] Last Admin: 04/24/19 11:08 Dose: Not Given Rivaroxaban (Xarelto) 20 mg PO ONETIME ONE Stop: 04/24/19 13:01 Last Admin: 04/24/19 14:37 Dose: 20 mg - Exam Quality Assessment: Denies: Supplemental Oxygen General: Reports: Alert, Oriented, Cooperative, No Acute Distress Lungs: Reports: Normal Respiratory Effort Cardiovascular: Reports: Regular Rate, Regular Rhythm GI/Abdominal Exam: Soft, No Distention Extremities: No Pedal Edema Neurological: Reports: No New Focal Deficit, Normal Gait, Strength Equal Bilateral Psy/Mental Status: Reports: Alert, Normal Affect
[2019-04-25] MEDS ORDERED: Clopidogrel 75 MG Tab PO ONE (16:35)
[2019-04-25] MEDS ORDERED: Rivaroxaban 10 MG Tab PO SCH (17:00)
[2019-04-25] MEDS ORDERED: atorvaSTATin 20 MG Tab PO SCH (21:00)
== END 2019-04-25 16:50 | disposition home or self-care (01) ==
LOC: JP.ED 17:30 → JP.MS 20:45
PROVIDERS: ADMIT Hospitalist; ATTEND Internal Medicine
DX: I63.132 Cerebral infarction due to embolism of left carotid artery (principal); I63.239 Cerebral infarction due to unspecified occlusion or stenosis of unspecified carotid artery; G81.91 Hemiplegia, unspecified affecting right dominant side; I10 Essential (primary) hypertension; J44.9 Chronic obstructive pulmonary disease, unspecified; Z87.891 Personal history of nicotine dependence; Z88.0 Allergy status to penicillin
CPT/HCPCS: 36415; 70544; 70549; 80048; 80061; 83036; 85025; 93306; 97162; 97530; 99285; A9270; A9579; G0378; 99217; 99219; 99225; 99284